=== PATIENT | female | born 1990 | race Hispanic/Latino ===

== ENCOUNTER 2017-08-13 16:38 | Emergency (ER) | payer BC ==
[2017-08-13] MEDS ORDERED: Sodium Chloride 0.9% 1,000 ML IV STA ×2 (17:42→22:22)
[2017-08-13 18:33] LABS: BASO # 0.01 K/mm3 (0.0-2.0); BASO % 0.1 % (0.0-3.0); EOS % 0.3 % (1.5-5.0); GRAN # 9.49 (1.4-6.5); GRAN % 82.5 % (50.0-68.0); HEMOGLOBIN 13.2 g/dL (12.0-16.0); LYMPH # 1.2 (1.2-3.4); LYMPH % 10.7 % (22.0-35.0); MEAN CELL VOLUME 87.6 fl (80.0-105.0); MEAN CORPUSCULAR HEMOGLOBIN 29.7 pg (25.0-35.0); MEAN CORPUSCULAR HGB CONC 33.9 g/dl (31.0-37.0); MEAN PLATELET VOLUME 9.5 fl (7.0-11.0); MONO # 0.7 (0.1-0.6); MONO % 6.4 % (1.0-6.0); PH,URINE 6.5 (4.7-8.0); RBC 4.44 10^6/uL (3.5-6.1); URINE BILIRUBIN NEGATIVE (NEGATIVE); URINE BLOOD SMALL (NEGATIVE); URINE GLUCOSE (UA) NEGATIVE (NEGATIVE); URINE LEUKOCYTE ESTERASE MODERATE Leu/uL (NEGATIVE); URINE PROTEIN 100 mg/dL (<30 mg/dL); WHITE BLOOD COUNT 11.5 10^3/ul (4.5-11.0)
[2017-08-13 18:35] LABS: URINE APPEARANCE CLOUDY (CLEAR); URINE COLOR LIGHT YELLOW (YELLOW)
[2017-08-13 18:43] LABS: URINE BACTERIA LARGE (NEG); URINE RBC TNTC /hpf (0-2); URINE WBC TNTC /hpf (0-6)
[2017-08-13 18:45] LABS: ALB/GLOB RATIO 1.4 (1.1-1.8); ALBUMIN 4.2 g/dL (3.0-4.8); ALT/SGPT 27 U/L (7-56); AST/SGOT 17 U/L (14-36); BLOOD UREA NITROGEN 11 mg/dL (7-21); CALCIUM 9.9 mg/dL (8.4-10.5); GFR AFRICAN-AMERICAN > 60; GFR NON-AFRICAN AMERICAN > 60; LIPASE 138 U/L (23-300)
--- NOTE | 2017-08-13 20:42 | ED PDOC ---
Arrival/HPI - General Chief Complaint: Female Genitourinary Time Seen by Provider: 08/13/17 17:41 Historian: Patient - History of Present Illness Narrative History of Present Illness (Text): 08/13/17 20:35 26-year-old female presents today with right-sided flank pain. Patient states she's been having flank pain for the past few days but today the pain worsens. Patient states she went to the primary care physician was given a shot of Toradol was sent into the emergency room for further evaluation. Patient denies fevers or chills. Denies nausea vomiting diarrhea or constipation. Patient denies radiation of pain to the abdomen. Patient states she has a history of urinary tract infections in the past and is complaining of some dysuria but states it is extremely minimal. Patient states after the shot of Toradol in the doctor's office the pain has completely resolved. She denies difficult to breathing. Denies chest pain or shortness of breath. No other complaints Past Medical History - Provider Review Nursing Documentation Reviewed: Yes - Travel History Have you recently traveled outside [place] w/in the past 3 mons?: No - Tetanus Immunization Tetanus Immunization: Unknown - Psychiatric Hx Psychophysiologic Disorder: No Hx Substance Use: No Family/Social History - Physician Review Nursing Documentation Reviewed: Yes Family/Social History: Unknown Family HX Smoking Status: Never Smoked Hx Alcohol Use: No Hx Substance Use: No Allergies/Home Meds Allergies/Adverse Reactions: Allergies No Known Allergies Allergy (Verified 08/13/17 17:00) Review of Systems - Review of Systems Constitutional: absent: Fatigue, Fevers Respiratory: absent: SOB, Cough Cardiovascular: absent: Chest Pain, Palpitations Gastrointestinal: absent: Abdominal Pain, Constipation, Diarrhea, Nausea, Vomiting Genitourinary Female: Dysuria. absent: Hematuria, Vaginal Bleeding, Vaginal Discharge Musculoskeletal: Back Pain (right flank pain). absent: Arthralgias Skin: absent: Rash, Pruritis Neurological: absent: Headache, Dizziness Psychiatric: absent: Anxiety, Depression Physical Exam Vital Signs Reviewed: Yes Vital Signs Temp Pulse Resp BP Pulse Ox 08/13/17 23:54 98.3 F 93 H 20 97 08/13/17 23:50 93 H 20 97 08/13/17 22:10 110 H 20 124/79 98 08/13/17 17:56 98 H 18 108/74 97 08/13/17 17:01 99.0 F 107 H 16 110/70 99 Temperature: Afebrile Blood Pressure: Normal Pulse: Tachycardic Respiratory Rate: Normal Appearance: Positive for: Well-Appearing, Non-Toxic, Comfortable Pain Distress: None Mental Status: Positive for: Alert and Oriented X 3 - Systems Exam Head: Present: Atraumatic Neck: Present: Normal Range of Motion Respiratory/Chest: Present: Clear to Auscultation, Good Air Exchange. No: Respiratory Distress, Accessory Muscle Use Cardiovascular: Present: Regular Rate and Rhythm, Normal S1, S2. No: Murmurs Abdomen: No: Tenderness, Distention, Peritoneal Signs, Rebound, Guarding Back: Present: Normal Inspection, CVA Tenderness (right sided), Other (right sided flank tenderness). No: Midline Tenderness Upper Extremity: Present: Normal ROM Lower Extremity: Present: Normal ROM Neurological: Present: GCS=15, Speech Normal Skin: Present: Warm, Dry, Normal Color. No: Rashes Psychiatric: Present: Alert, Oriented x 3 Medical Decision Making ED Course and Treatment: 08/13/17 20:38 Patient is nontoxic well appearing with stable vital signs presenting with right flank pain. CBC wnl CMP wnl Lipase: wnl Urinalysis + blood, + nitrates, +leukocytes, + large bacteria CAT scan:FINDINGS: Limitations: Lack of intravenous contrast. Lung bases: Minimal atelectasis. Pleural space: Trace bilateral pleural effusions. ABDOMEN: Liver: Unremarkable. Gallbladder and bile ducts: No calcified stones. No ductal dilation. Pancreas: Unremarkable. No ductal dilation. Spleen: No splenomegaly. Adrenals: No mass. Kidneys and ureters: No renal calculi. No hydronephrosis. Stomach and bowel: No definite mural thickening. No obstruction. PELVIS: Appendix: No definite findings to suggest acute appendicitis. Bladder: Unremarkable. No stones. Reproductive: IUD. ABDOMEN and PELVIS: Intraperitoneal space: No significant fluid collection. No free air. Bones/joints: No acute fracture. Soft tissues: Unremarkable. Vasculature: Unremarkable. No aneurysm. Lymph nodes: No pathologically enlarged lymph nodes. IMPRESSION: 1. No definite CT evidence of urolithiasis. 2. Trace bilateral pleural effusions. 3. Incidental/non-acute findings are described above Patient reassessment: pt developed headache; tylenol given for pain. i discussed results in depth with patient; rocephin given IV. Patient given normal saline IV bolus. pt reassessment; vitals stable. pt feeling much better; no distress. no pain. afebrile. stable vitals. Discussed all results with patient in depth. Patient denies any pain at present time. Patient states she's feeling much better and wants to go home to her child at home. I discussed the urine results in depth with the patient advised patient that she has a kidney infection. Patient was advised that she must follow-up with the primary care physician within the next 2 days. Patient was advised to follow-up with urologist. Patient was advised immediate return if symptoms worsen persist or if new concerning symptoms develop: High fevers, increasing pain, nausea vomiting dizziness or if any other concerning symptoms develop. Patient verbalizes understanding of discharge instructions and need for immediate followup. all aspects of this case were discussed the attending of record. Impression: pyelonephritis Motrin every 6 hours as needed for pain/fever reduction Vantin; 1 tablet twice daily x 10 days increase fluids Follow up with the primary care physician within the next 2 days Follow up with the urologist within the next 2 days. Return IMMEDIATELY if symptoms worsen,persist or if new symptoms develop; high fevers, increasing pain, nausea, vomiting, dizziness or if any other concerning symptoms develop Reassessment Condition: Re-examined, Improved - Lab Interpretations Lab Results: 08/13/17 18:20 08/13/17 18:20 Lab Results 08/13/17 18:20: WBC 11.5 H, RBC 4.44, Hgb 13.2, Hct 38.9, MCV 87.6, MCH 29.7, MCHC 33.9, RDW 13.0, Plt Count 305, MPV 9.5, Gran % 82.5 H, Lymph % (Auto) 10.7 L, Mora % (Auto) 6.4 H, Eos % (Auto) 0.3 L, Baso % (Auto) 0.1, Gran # 9.49 H, Lymph # (Auto) 1.2, Mora # (Auto) 0.7 H, Eos # (Auto) 0.0, Baso # (Auto) 0.01 08/13/17 18:20: Sodium 141, Potassium 4.3, Chloride 101, Carbon Dioxide 27, Anion Gap 17, BUN 11, Creatinine 0.8, Est GFR ( Amer) > 60, Est GFR (Non- Af Amer) > 60, Random Glucose 86, Calcium 9.9, Total Bilirubin 0.6, AST 17, ALT 27, Alkaline Phosphatase 51, Total Protein 7.1, Albumin 4.2, Globulin 2.9, Albumin/Globulin Ratio 1.4, Lipase 138 08/13/17 18:20: Urine Color Light yellow, Urine Appearance Cloudy, Urine pH 6.5 , Ur Specific [place] 1.020, Urine Protein 100 H, Urine Glucose (UA) Negative, Urine Ketones Trace H, Urine Blood Small H, Urine Nitrate Positive H, Urine Bilirubin Negative, Urine Urobilinogen 1.0 H, Ur Leukocyte Esterase Moderate H, Urine RBC Tntc, Urine WBC Tntc, Urine Bacteria Large - RAD Interpretation Radiology Orders: 08/13/17 18:06 ABD & PELVIS W/O PO OR IV CONT [CT] Stat - Medication Orders Current Medication Orders: Discontinued Medications Acetaminophen (Tylenol 325mg Tab) 975 mg PO STAT STA Stop: 08/13/17 21:31 Last Admin: 08/13/17 21:58 Dose: 975 mg MAR Pain/Vitals Document 08/13/17 21:58 SS (Rec: 08/13/17 21:58 SS [id number]) Location Pain Location Body [employer] Sodium Chloride (Sodium Chloride 0.9%) 1,000 mls @ 999 mls/hr IV .Q1H1M STA Stop: 08/13/17 18:42 Last Admin: 08/13/17 18:13 Dose: 999 mls/hr eMAR Start Stop Document 08/13/17 18:13 SF (Rec: 08/13/17 18:14 [id number] Intravenous Solution Start Date 08/13/17 Start Time 18:13 End Date 08/13/17 End time 19:14 Total Infusion Time 61 Ceftriaxone Sodium (Rocephin 1 Gram Ivpb) 1 gm in 100 mls @ 200 mls/hr IVPB STAT STA PRN Reason: Protocol Stop: 08/13/17 22:32 Last Admin: 08/13/17 22:21 Dose: 200 mls/hr eMAR Start Stop Document 08/13/17 22:21 SS (Rec: 08/13/17 22:21 SS [id number]) Intravenous Solution Start Date 08/13/17 Start Time 22:21 End Date 08/13/17 End time 22:52 Total Infusion Time 31 Sodium Chloride (Sodium Chloride 0.9%) 1,000 mls @ 999 mls/hr IV .Q1H1M STA Stop: 08/13/17 23:22 Last Admin: 08/13/17 22:28 Dose: 999 mls/hr eMAR Start Stop Document 08/13/17 22:28 SS (Rec: 08/13/17 22:29 SS [id number]) Intravenous Solution Start Date 08/13/17 Start Time 22:28 End Date 08/13/17 End time 23:28 Total Infusion Time 60 Ibuprofen (Motrin Tab) 600 mg PO STAT STA Stop: 08/13/17 23:37 Last Admin: 08/13/17 23:46 Dose: 600 mg MAR Pain/Vitals Document 08/13/17 23:46 SS (Rec: 08/13/17 23:48 SS [id number]) Pain Reassessment Is This A Pain ReAssessment? No Presence of Pain Presence of Pain Yes Disposition/Present on Arrival - Present on Arrival Any Indicators Present on Arrival: No History of DVT/PE: No History of Uncontrolled Diabetes: No Urinary Catheter: No History of Decub. Ulcer: No History Surgical Site Infection Following: None - Disposition Have Diagnosis and Disposition been Completed?: Yes Diagnosis: Pyelonephritis Disposition: HOME/ ROUTINE Disposition Time: 23:19 Patient Plan: Other (AMA) Condition: IMPROVED Discharge Instructions (ExitCare): Kidney Infection (DC) Additional Instructions: Motrin every 6 hours as needed for pain/fever reduction Vantin; 1 tablet twice daily x 10 days increase fluids Follow up with the primary care physician within the next 2 days Follow up with the urologist within the next 2 days. Return IMMEDIATELY if symptoms worsen,persist or if new symptoms develop; high fevers, increasing pain, nausea, vomiting, dizziness or if any other concerning symptoms develop Prescriptions: Cefpodoxime [Vantin] 100 mg PO BID #20 tab Ibuprofen [Motrin] 600 mg PO Q6H PRN #20 tab PRN Reason: pain/fever reduction Referrals: Elliot Santiago MD [Staff Provider] - Follow up with primary Yadiel Irizarry MD [Staff Provider] - Follow up with primary Forms: [employer] (Portuguese), WORK NOTE
--- NOTE | 2017-08-13 21:50 | CT ---
EXAM: CT Abdomen and Pelvis Without Intravenous Contrast CLINICAL HISTORY: 26 years old, female; Pain; Other: Right flank pain TECHNIQUE: Axial computed tomography images of the abdomen and pelvis without intravenous contrast. All CT scans at this facility use one or more dose reduction techniques, viz.: automated exposure control; ma/kV adjustment per patient size (including targeted exams where dose is matched to indication; i.e. head); or iterative reconstruction technique. Coronal and sagittal reformatted images were created and reviewed. COMPARISON: No relevant prior studies available. FINDINGS: Limitations: Lack of intravenous contrast. Lung bases: Minimal atelectasis. Pleural space: Trace bilateral pleural effusions. ABDOMEN: Liver: Unremarkable. Gallbladder and bile ducts: No calcified stones. No ductal dilation. Pancreas: Unremarkable. No ductal dilation. Spleen: No splenomegaly. Adrenals: No mass. Kidneys and ureters: No renal calculi. No hydronephrosis. Stomach and bowel: No definite mural thickening. No obstruction. PELVIS: Appendix: No definite findings to suggest acute appendicitis. Bladder: Unremarkable. No stones. Reproductive: IUD. ABDOMEN and PELVIS: Intraperitoneal space: No significant fluid collection. No free air. Bones/joints: No acute fracture. Soft tissues: Unremarkable. Vasculature: Unremarkable. No aneurysm. Lymph nodes: No pathologically enlarged lymph nodes. IMPRESSION: 1. No definite CT evidence of urolithiasis. 2. Trace bilateral pleural effusions. 3. Incidental/non-acute findings are described above.
[2017-08-13] MEDS ORDERED: cefTRIAXone 1 gm 1 GM/100 ML BAG IVPB STA (22:03)
[2017-08-13 22:10] VITALS: BP 124/79; RESP 20
[2017-08-13 23:50] VITALS: PULSE 93; O2SAT 97
[2017-08-13 23:56] VITALS: TEMP 98.3
== END 2017-08-13 23:54 | disposition home or self-care (01) ==
LOC: ED 16:38
DX: N12 Tubulo-interstitial nephritis, not specified as acute or chronic (principal)
CPT/HCPCS: 74176; 80053; 81001; 83690; 85025; 87040; 87086; 87181; 96361; 96365; 99284; J0696; J7030